=== PATIENT | female | born 1955 | race Caucasian/White ===

== ENCOUNTER → 2016-06-16 | Outpatient (CLI) | payer OTHER ==
[~2016-06-16] MED LIST: ALEVE220 M1 PO; Fish Oil PO; PYRIDOXINE,VIT100 MG PO; THERAGRAN1 TABLET PO; Tums PO; Vicodin,Lortab 5/500 PO; Vitamin-E PO; Zocor PO
== END | disposition home or self-care (01) ==
LOC: RAD 11:42
DX: M77.31 Calcaneal spur, right foot (principal); R93.8 Abnormal findings on diagnostic imaging of other specified body structures
CPT/HCPCS: 73630

== ENCOUNTER → 2016-07-05 | Outpatient (CLI) | payer OTHER | END | disposition home or self-care (01) | LOC: RAD 08:13 | DX: K59.00 Constipation, unspecified (principal); I70.90 Unspecified atherosclerosis; I25.10 Atherosclerotic heart disease of native coronary artery without angina pectoris | CPT/HCPCS: 74177 ==

== ENCOUNTER → 2016-07-18 | Outpatient (CLI) | payer OTHER | END | disposition home or self-care (01) | LOC: RAD 08:17 | DX: I89.0 Lymphedema, not elsewhere classified (principal) | CPT/HCPCS: 73701 ==

== ENCOUNTER → 2016-12-01 | Outpatient (CLI) | payer OTHER | END | disposition home or self-care (01) | LOC: RAD 10:46 | DX: Z01.818 Encounter for other preprocedural examination (principal) | CPT/HCPCS: 71020 ==